=== PATIENT | male | born 1995 | race Caucasian/White ===

== ENCOUNTER 2017-11-23 11:14 | Emergency (ER) | payer MEDICAID ==
[~2017-11-23] VITALS: Ht 175.3 cm; Wt 90.0 kg
[~2017-11-23 11:14] MED LIST: CYCL-1 PO; GABA-530 PO
[2017-11-23 11:29] VITALS: BP 159/131
[2017-11-23] MEDS ORDERED: acetaminophen w/codeine (30MG) #3 tablet PO ONE (14:10)
== END 2017-11-23 14:45 | disposition home or self-care (01) ==
LOC: ER 11:14
DX: M25.511 Pain in right shoulder (principal); F12.10 Cannabis abuse, uncomplicated
CPT/HCPCS: 73030; 99284; A4565